=== PATIENT | female | born 1985 | race African-American/Black ===

== ENCOUNTER 2016-11-15 12:13 | Emergency (ER) | payer MEDICAID ==
[~2016-11-15] VITALS: Ht 162.6 cm; Wt 87.4 kg
[2016-11-15] MEDS ORDERED: BACITRACIN ZINC OINT UDPKT TOP ONE (13:15)
[2016-11-15] MEDS ORDERED: IBUPROFEN 800MG TABLET PO ONE (13:15)
[2016-11-15] MEDS ORDERED: TETANUS, DIPHTHERIA, PERTUSSIS VAC/PF 0.5ML (>7YR OLD) IM ONE (13:15)
[2016-11-15 14:21] LABS: UCG SCREEN NEGATIVE
[2016-11-15 15:00] VITALS: BP 126/80
[2016-11-15] MEDS ORDERED: LIDOCAINE HCL 1% 20ML VIAL (Pyxis) INJ MC ONE (15:30)
== END 2016-11-15 16:16 | disposition home or self-care (01) ==
LOC: ER 12:55
DX: S91.311A Laceration without foreign body, right foot, initial encounter (principal); S63.502A Unspecified sprain of left wrist, initial encounter; J45.909 Unspecified asthma, uncomplicated; Z88.0 Allergy status to penicillin; Y04.0XXA Assault by unarmed brawl or fight, initial encounter; Y93.89 Activity, other specified; Y92.488 Other paved roadways as the place of occurrence of the external cause
CPT/HCPCS: 12001; 73110; 73630; 81025; 90471; 90715; 99284; J3490; Z7610

== ENCOUNTER 2016-11-23 19:36 | Emergency (ER) | payer MEDICAID ==
[~2016-11-23] VITALS: Ht 162.6 cm; Wt 87.0 kg
[2016-11-23 19:40] VITALS: BP 125/79
== END 2016-11-23 23:00 | disposition home or self-care (01) ==
LOC: ER 22:35
DX: Z48.02 Encounter for removal of sutures (principal); Z88.0 Allergy status to penicillin; F12.90 Cannabis use, unspecified, uncomplicated
CPT/HCPCS: 99281

== ENCOUNTER 2016-12-05 12:53 | Emergency (ER) | payer MEDICAID ==
[~2016-12-05] VITALS: Ht 162.6 cm; Wt 87.0 kg
[2016-12-05] MEDS ORDERED: KETOROLAC 30MG/ML VIAL IV STA (16:49)
[2016-12-05] MEDS ORDERED: SODIUM CHLORIDE 0.9% 1,000 ML IV ONE (16:49)
[2016-12-05] MEDS ORDERED: ONDANSETRON HCL 4MG/2ML VIAL IV STA (16:49)
[2016-12-05 17:12] LABS: BASOPHILS % 0.4 % (0.0-2.0); EOSINOPHILS % 0.4 % (0.0-5.0); HEMATOCRIT. 32.8 % (36.0-48.0); HEMOGLOBIN. 10.9 g/dL (12.0-16.0); MEAN CORPUSCULAR HEMOGLOBIN 24.5 pg (28.0-32.0); MEAN CORPUSCULAR VOLUME 73.8 fL (81.0-99.0); MEAN PLATELET VOLUME 7.2 fl (7.4-10.4); NEUTROPHILS % 78.2 % (40.0-76.0); PLATELET 399 x1000/uL (130-400); RED BLOOD CELL COUNT 4.45 mill/uL (4.2-5.4); RED CELL DISTRIBUTION WIDTH 15.5 % (11.6-14.6)
[2016-12-05 17:28] LABS: CARBON DIOXIDE 28 mEq/L (21-32); CHLORIDE 100 mEq/L (98-107)
[2016-12-05 17:36] LABS: HCG SCREEN NEGATIVE
[2016-12-05 18:08] LABS: CLARITY URINE CLOUDY (CLEAR); COLOR URINE YELLOW (YELLOW); GLUCOSE URINE NEGATIVE (NEGATIVE); KETONES URINE 2+ (NEGATIVE); LEUKOCYTE ESTERASE URINE 2+ (NEGATIVE); NITRITE URINE POSITIVE (NEGATIVE); OCCULT BLOOD URINE 2+ (NEGATIVE); PH URINE 5.5 (4.5-8.0); PROTEIN URINE TRACE (NEGATIVE); SPECIFIC GRAVITY URINE 1.013 (1.005-1.030)
[2016-12-05 20:05] VITALS: BP 137/80
== END 2016-12-05 21:40 | disposition home or self-care (01) ==
LOC: ER 12:53
DX: N39.0 Urinary tract infection, site not specified (principal); E86.0 Dehydration; F12.10 Cannabis abuse, uncomplicated; D64.9 Anemia, unspecified; D72.829 Elevated white blood cell count, unspecified; Z88.0 Allergy status to penicillin; J45.909 Unspecified asthma, uncomplicated
CPT/HCPCS: 36415; 76830; 76856; 80053; 81001; 83690; 84703; 85025; 96361; 96374; 96375; 99285; J1885; J2405; J7030; Z7610

== ENCOUNTER 2017-01-27 17:02 | Emergency (ER) | payer MEDICAID ==
[~2017-01-27] VITALS: Ht 170.2 cm; Wt 77.0 kg
[2017-01-27 17:05] VITALS: BP 132/77
== END 2017-01-27 18:36 | disposition left against medical advice (07) ==
LOC: ER 17:02
DX: R07.9 Chest pain, unspecified (principal); Z53.21 Procedure and treatment not carried out due to patient leaving prior to being seen by health care provider
CPT/HCPCS: 93005

== ENCOUNTER 2017-03-12 23:40 | Emergency (ER) | payer MEDICAID ==
[~2017-03-12] VITALS: Ht 162.6 cm; Wt 86.0 kg
[2017-03-13] MEDS ORDERED: KETOROLAC 30MG/ML VIAL IM ONE (02:15)
[2017-03-13] MEDS ORDERED: ONDANSETRON 4MG ODT PO ONE (02:15)
[2017-03-13] MEDS ORDERED: HYDROCODONE/ACETAMINOPHEN 5/325MG TABLET PO ONE (04:45)
[2017-03-13 05:00] VITALS: BP 118/62
== END 2017-03-13 05:20 | disposition home or self-care (01) ==
LOC: ER 23:40
DX: S09.90XA Unspecified injury of head, initial encounter (principal); M47.892 Other spondylosis, cervical region; J32.3 Chronic sphenoidal sinusitis; F12.10 Cannabis abuse, uncomplicated; Z88.0 Allergy status to penicillin; V03.00XA Pedestrian on foot injured in collision with car, pick-up truck or van in nontraffic accident, initial encounter; Y93.89 Activity, other specified; Y92.488 Other paved roadways as the place of occurrence of the external cause
CPT/HCPCS: 70450; 70486; 72125; 81025; 96372; 99284; J1885; Q0162

== ENCOUNTER 2017-05-23 21:02 | Emergency (ER) | payer MEDICAID ==
[~2017-05-23] VITALS: Ht 162.6 cm; Wt 74.0 kg
[2017-05-24 00:31] LABS: HEMATOCRIT. 33.7 % (36.0-48.0); HEMOGLOBIN. 11.4 g/dL (12.0-16.0); MEAN CORPUSCULAR HEMOGLOBIN 24.9 pg (28.0-32.0); MEAN CORPUSCULAR VOLUME 73.4 fL (81.0-99.0); MEAN PLATELET VOLUME 7.9 fl (7.4-10.4); PLATELET 359 x1000/uL (130-400); RED BLOOD CELL COUNT 4.59 mill/uL (4.2-5.4); RED CELL DISTRIBUTION WIDTH 16.3 % (11.6-14.6)
[2017-05-24 00:44] LABS: CHLORIDE 104 mEq/L (98-107)
[2017-05-24 00:53] LABS: CLARITY URINE CLEAR (CLEAR); COLOR URINE YELLOW (YELLOW); KETONES URINE 2+ (NEGATIVE); LEUKOCYTE ESTERASE URINE TRACE (NEGATIVE); NITRITE URINE NEGATIVE (NEGATIVE); OCCULT BLOOD URINE 3+ (NEGATIVE); PROTEIN URINE NEGATIVE (NEGATIVE); SPECIFIC GRAVITY URINE 1.015 (1.005-1.030)
[2017-05-24 01:00] LABS: CARBON DIOXIDE 24 mEq/L (21-32)
[2017-05-24 01:17] LABS: B-HCG QUANTITATIVE 2942 mIU/mL (<3)
[2017-05-24] MEDS ORDERED: ACETAMINOPHEN 325MG TABLET PO ONE ×2 (01:30→03:00)
[2017-05-24 02:54] LABS: PLATELET ESTIMATE NORMAL
[2017-05-24] MEDS ORDERED: ACETAMINOPHEN 500MG TABLET PO SCH (03:02)
[2017-05-24 03:29] VITALS: BP 131/69
== END 2017-05-24 03:30 | disposition home or self-care (01) ==
LOC: ER 21:23
DX: O20.0 Threatened abortion (principal); O23.40 Unspecified infection of urinary tract in pregnancy, unspecified trimester; O09.299 Supervision of pregnancy with other poor reproductive or obstetric history, unspecified trimester; Z88.0 Allergy status to penicillin
CPT/HCPCS: 36415; 76830; 76856; 80053; 81001; 84702; 85025; 86850; 86900; 99285

== ENCOUNTER 2017-10-04 17:42 | Emergency (ER) | payer MEDICAID ==
[2017-10-04 19:57] LABS: HCG SCREEN NEGATIVE
[2017-10-04] MEDS ORDERED: IBUPROFEN 600MG TABLET PO ONE (21:00)
[2017-10-04 21:21] VITALS: BP 126/81
== END 2017-10-04 21:50 | disposition home or self-care (01) ==
LOC: ER 17:42
DX: S90.111A Contusion of right great toe without damage to nail, initial encounter (principal); F17.200 Nicotine dependence, unspecified, uncomplicated; Z88.0 Allergy status to penicillin; W22.09XA Striking against other stationary object, initial encounter; Y93.9 Activity, unspecified; Y92.9 Unspecified place or not applicable
CPT/HCPCS: 73660; 84703; 99285; Z7610

== ENCOUNTER 2018-07-12 19:26 | Emergency (ER) | payer MEDICAID ==
[~2018-07-12] VITALS: Ht 162.6 cm; Wt 87.0 kg
[2018-07-12] MEDS ORDERED: AZITHROMYCIN 500 MG TABLET PO ONE (21:00)
[2018-07-12] MEDS ORDERED: IBUPROFEN 600MG TABLET PO ONE (21:00)
[2018-07-12 21:13] VITALS: BP 135/81
[2018-07-12 21:30] LABS: CLARITY URINE CLEAR (CLEAR); COLOR URINE YELLOW (YELLOW); KETONES URINE NEGATIVE (NEGATIVE); LEUKOCYTE ESTERASE URINE NEGATIVE (NEGATIVE); NITRITE URINE NEGATIVE (NEGATIVE); OCCULT BLOOD URINE NEGATIVE (NEGATIVE); PH URINE 5.5 (4.5-8.0); PROTEIN URINE NEGATIVE (NEGATIVE); SPECIFIC GRAVITY URINE 1.014 (1.005-1.030); UROBILINOGEN URINE 0.2 E.U./dL (0.2-1.0)
[2018-07-15 06:13] LABS: CHLAMYDIA TRACHOMATIS NAA Negative (Negative); NEISSERIA GONORRHOEAE NAA Negative (Negative)
== END 2018-07-12 22:02 | disposition home or self-care (01) ==
LOC: ER 19:26
DX: A64 Unspecified sexually transmitted disease (principal); Z72.51 High risk heterosexual behavior; F12.90 Cannabis use, unspecified, uncomplicated
CPT/HCPCS: 81025; 87210; 87491; 87591; 99283

== ENCOUNTER 2018-09-06 11:16 | Emergency (ER) | payer MEDICAID ==
[~2018-09-06] VITALS: Ht 162.6 cm; Wt 86.0 kg
[2018-09-06 11:29] VITALS: BP 137/77
== END 2018-09-06 12:15 | disposition home or self-care (01) ==
LOC: ER 11:16
DX: T63.441A Toxic effect of venom of bees, accidental (unintentional), initial encounter (principal); F12.10 Cannabis abuse, uncomplicated; Z88.0 Allergy status to penicillin; Y92.89 Other specified places as the place of occurrence of the external cause
CPT/HCPCS: 99281

== ENCOUNTER 2025-02-14 16:50 | Emergency (ER) | payer MEDICAID ==
[~2025-02-14] VITALS: Ht 167.6 cm; Wt 85.0 kg
[2025-02-14 16:53] VITALS: O2SAT 97
[2025-02-14 19:24] VITALS: BP 148/101; PULSE 104; RESP 22; TEMP 37.1; O2SAT 99
[2025-02-14] MEDS: SODIUM CHLORIDE 0.9% 1,000 ML IV ONE (19:40)
== END 2025-02-14 21:51 | disposition left against medical advice (07) ==
LOC: ER 17:10 → CMPBEDREQ 02-15 08:01
DX: R55 Syncope and collapse (principal); G44.309 Post-traumatic headache, unspecified, not intractable; J45.909 Unspecified asthma, uncomplicated; Z88.0 Allergy status to penicillin
CPT/HCPCS: 99284; 96360; 76830; 76856; 71045; 93005; J7030; 99285